=== PATIENT | male | born 1975 | race Caucasian/White ===

== ENCOUNTER 2016-12-21 12:07 | Day surgery (SDC) | payer OTHER ==
[2016-12-21] VITALS (9 sets, daily range): BP systolic 132–165; BP diastolic 80–96; PULSE 75–92; RESP 14–20; Ht 177.8 cm; Wt 103.0 kg
[~2016-12-21] VITALS: Ht 177.8 cm; Wt 103.0 kg
[2016-12-21] MEDS ORDERED: OMEP20CA16 PO (13:04)
[2016-12-21] MEDS ORDERED: PROPOFOL 20 ML ONE ×2 (15:06→18:06)
[2016-12-21] MEDS ORDERED: SUCCINYLCHOLINE CHLORIDE 100 MG/5 ML SYG IV ONE (15:06)
[2016-12-21] MEDS ORDERED: MIDAZOLAM 1 MG/ML 2 ML INJ ONE (15:06)
[2016-12-21] MEDS ORDERED: LIDOCAINE 2% (SDV) 5 ML INJ ONE (15:06)
--- NOTE | 2016-12-21 15:08 | HPN ---
Date/Time of Note Date/Time of Note DATE: 12/21/16 TIME: 15:07 Interval H&P Admission Note Pt. seen H&P reviewed: No system changes SU LOPES MD Dec 21, 2016 15:08
[2016-12-21] MEDS ORDERED: DEXAMETHASONE 4 MG/ML 1 ML INJ ONE (16:17)
[2016-12-21] MEDS ORDERED: ONDANSETRON 4 MG INJ ONE (16:17)
[2016-12-21] MEDS ORDERED: METOCLOPRAMIDE 10 MG INJ ONE (16:17)
[2016-12-21] MEDS ORDERED: ROCURONIUM 50 MG INJ ONE (16:20)
[2016-12-21] MEDS ORDERED: FENTAnyl 50 MCG/ML VIAL ONE (16:21)
[2016-12-21] MEDS ORDERED: CLINDAMYCIN 900 MG/D5W (PMX) 50 ML IVPB ONE (16:21)
[2016-12-21] MEDS ORDERED: EPINEPHrine 1 MG INJ ONE (16:27)
[2016-12-21] MEDS ORDERED: EPINEPHrine 1 MG/ML 30 ML INJ ONE (16:28)
[2016-12-21] MEDS ORDERED: GLYCOPYRROLATE 0.4 MG INJ ONE (16:35)
[2016-12-21] MEDS ORDERED: NEOSTIGMINE 3 MG/3 ML SYRINGE ONE ×2 (16:35→16:37)
--- NOTE | 2016-12-21 16:43 | OPR ---
Date/Time of Note Date/Time of Note DATE: 12/21/16 TIME: 16:37 Operative Report Procedure Date: Dec 21, 2016 Preoperative Diagnosis Left vocal cord mass. Postoperative Diagnosis Same Operation Performed Microscopic direct laryngoscopy with resection of left vocal fold mass. Surgeon: SU LOPES MD Anesthesia: general Estimated Blood Loss: minimal Specimens Left/anterior commissure vocal cord mass. Complications: None Pt Condition Post Procedure: stable Disposition: PACU Indications Dysphonia, shortness of breath. 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 Procedure Description Description of procedure: The patient was identified in the holding area. We had a discussion to confirm understanding of indications, risks, benefits, alternatives and postoperative care associated with the operation. The potential for tooth damage , voice change, progressive hoarseness was discussed specifically. Informed consent was signed. The patient was taken the operating room and placed supine on the operating table. General endotracheal anesthesia was achieved with moderate difficulty due to the relatively large glottic mass. Once this was done, the eyes and teeth were protected and laryngoscopy was performed. Blood was noted in the posterior pharynx and a small laceration in the pharynx was found to be the source. The larynx was visualized and suspended. A very large anterior left cord mass was identified. A microcup forceps was used to grab the mass and retract it into the microscopic field. Under microscopy, an angled laryngeal scissor was used to transect the posterior aspect. Decision was made to leave a small amount on the anterior commissure to prevent webbing. Lidocaine and epi were applied separately. The mass, once resected, was sent to pathology. All instruments were removed and teeth examined and found to be normal. The patient tolerated the procedure well and was extubated, taken to PACU in stable condition. Complications: None SU LOPES MD Dec 21, 2016 16:43
[2016-12-21] MEDS ORDERED: FENTAnyl 50 MCG/ML VIAL IV PRN (17:00)
[2016-12-21] MEDS ORDERED: ONDANSETRON 4 MG INJ IV PRN (17:00)
[2016-12-21] MEDS ORDERED: PROCHLORPERAZINE 10 MG INJ IV PRN (17:00)
[2016-12-21] MEDS ORDERED: DIPHENHYDRAMINE 50 MG INJ IV PRN (17:00)
[2016-12-21] MEDS ORDERED: MEPERIDINE 25 MG INJ IV PRN (17:00)
[2016-12-21] MEDS ORDERED: OXYCODONE/ACETAMINOPHEN (5/325) TAB PO PRN (17:00)
[2016-12-21] MEDS ORDERED: HYDROmorphONE (0.2 MG/ML) 10ML SYG IV PRN (17:00)
== END 2016-12-21 18:10 | disposition home or self-care (01) ==
LOC: SDS 12:07
PROVIDERS: ATTEND Otolaryngology
DX: J38.1 Polyp of vocal cord and larynx (principal); R49.0 Dysphonia; E66.9 Obesity, unspecified; Z68.32 Body mass index [BMI] 32.0-32.9, adult
CPT/HCPCS: 31540; 88307; J0171; J1100; J2250; J2405; J2765; J3010; J7999; Z7512; Z7610; J2710

== ENCOUNTER 2017-03-09 08:35 | Day surgery (SDC) | payer OTHER ==
[2017-03-08 10:08] VITALS: BMI 33.2
[~2017-03-09] VITALS: Ht 180.3 cm; Wt 101.6 kg
[2017-03-09] VITALS (14 sets, daily range): BP systolic 118–151; BP diastolic 76–97; PULSE 60–101; RESP 12–22; Ht 180.3 cm; Wt 101.6 kg
[~2017-03-09 08:35] MED LIST: OMEP20CA16 PO
[2017-03-09] MEDS ORDERED: CEFAZOLIN 2 GM/50 ML (PMX) 50 ML IVPB SCH (09:00)
[2017-03-09] MEDS ORDERED: SOD CHLORIDE 0.9% 1,000 ML IV SCH (10:00)
[2017-03-09] MEDS ORDERED: POLYMYXIN/BACITRACIN 1L IRRIG ONE (10:24)
[2017-03-09] MEDS ORDERED: BUPIVACAINE 0.25% (MPF) 10 ML 10 ML VIAL ONE ×2 (10:24→12:12)
[2017-03-09] MEDS ORDERED: MIDAZOLAM 1 MG/ML 2 ML INJ IV PRN (11:00)
[2017-03-09] MEDS ORDERED: EPHEDrine SULFATE 50 MG/5 ML SYG IV PRN (11:00)
[2017-03-09] MEDS ORDERED: METOCLOPRAMIDE 10 MG INJ IV PRN (11:00)
[2017-03-09] MEDS ORDERED: MEPERIDINE 25 MG INJ IV PRN (11:00)
[2017-03-09] MEDS ORDERED: hydrALAzine 20 MG INJ IV PRN (11:00)
[2017-03-09] MEDS ORDERED: FENTAnyl 50 MCG/ML VIAL IV PRN ×2 (11:00)
[2017-03-09] MEDS ORDERED: LABETALOL HCL 20MG INJ IV PRN (11:00)
[2017-03-09] MEDS ORDERED: HYDROmorphONE (0.2 MG/ML) 10ML SYG IV PRN ×3 (11:00)
[2017-03-09] MEDS ORDERED: ONDANSETRON 4 MG INJ IV PRN (11:00)
[2017-03-09] MEDS ORDERED: OXYCODONE/ACETAMINOPHEN (5/325) TAB PO PRN ×2 (11:00)
[2017-03-09] MEDS ORDERED: DIPHENHYDRAMINE 50 MG INJ IV PRN (11:00)
[2017-03-09] MEDS ORDERED: MEPERIDINE 100 MG INJ ONE (11:04)
[2017-03-09] MEDS ORDERED: NEOSTIGMINE 3 MG/3 ML SYRINGE ONE ×2 (11:04→11:48)
[2017-03-09] MEDS ORDERED: GLYCOPYRROLATE 0.4 MG INJ ONE ×3 (11:04→11:48)
[2017-03-09] MEDS ORDERED: LIDOCAINE 2% (SDV) 5 ML INJ ONE (11:04)
[2017-03-09] MEDS ORDERED: ROCURONIUM 50 MG INJ ONE (11:04)
[2017-03-09] MEDS ORDERED: SUCCINYLCHOLINE CHLORIDE 100 MG/5 ML SYG IV ONE (11:04)
[2017-03-09] MEDS ORDERED: PROPOFOL 20 ML ONE (11:04)
[2017-03-09] MEDS ORDERED: CEFAZOLIN 1 GM INJ ONE (11:48)
--- NOTE | 2017-03-09 12:24 | OPR ---
Date/Time of Note Date/Time of Note DATE: 03/09/17 TIME: 12:18 Operative Report Procedure Date: Mar 09, 2017 Preoperative Diagnosis incarcerated ventral hernia Postoperative Diagnosis large incarcerated ventral hernia Operation Performed 1. laparoscopic converted to open incarcerated ventral hernia repair 2. laparoscopic lysis of adhesions 3. implantation of mesh cpt code 05623 4. therapeutic injection of subcutaneous marcaine cpt code 54719 Surgeon: Deb ROGERS Anesthesia Type: general Estimated Blood Loss: 10 - 50 ml's Specimen: none Grafts/Implants ventralight ST 10x 15 cm mesh Complications: no Indications This is a 42-year-old male with a very large incarcerated ventral hernia. He required surgical repair. Risks alternatives benefits of personally discussed the patient. In particular potential complications include but not limited to bleeding infection and conversion to open were discussed the patient. Patient expresses understanding and consents to the operation. Procedure Description Patient was taken to the OR and prepped draped in usual sterile fashion. Surgical timeout was performed. IV antibiotics given. Left upper quadrant 5 mm incision was made transversely with a 15 blade. Using a 5 mm optical trocar optical and she was performed. Pneumoperitoneum is established. Left flank 12 mm optical trocar left lower quadrant 5 mm optical trochars were placed under direct visualization upon initial inspection there are some adhesions to the anterior abdominal wall from prior surgery these were taken down extensively laparoscopic lysis of adhesions however on evaluation of the hernia which appeared incarcerated with extensive adhesions the decision was made to convert to open. Transverse incision infraumbilical was made with a 15 blade. Dissection cautery was carried onto the fascia. The hernia was identified and isolated. The hernia sac was then reduced. Fascial edges were freshened. A 10 x [address] mesh was secured in place with interrupted #1 Prolenes with approximate 4-5 there is a coverage in all directions. There is good hemostasis. The she was closed primarily with a running #1 looped PDS. The surgical site was irrigated. The surgical site was hemostatic. The base of the stalk of the rectus was then secured to the anterior abdominal wall with an interrupted 3-0 Vicryl suture. The skin was then closed with skin wilfred. There appears to contains Marcaine was injected throughout the incision site. Dressings were applied. Deb ROGERS Mar 09, 2017 12:24
[2017-03-09] MEDS ORDERED: HYDROCODONE/APAP (5/325) TAB PO ONE (12:30)
[2017-03-09] MEDS: FENTAnyl 50 MCG/ML VIAL IV PRN ×2 (12:38→12:47)
== END 2017-03-09 15:35 | disposition home or self-care (01) ==
LOC: SDS 08:35
PROVIDERS: ATTEND Surgery
DX: K43.6 Other and unspecified ventral hernia with obstruction, without gangrene (principal); E66.9 Obesity, unspecified; Z68.31 Body mass index [BMI] 31.0-31.9, adult
CPT/HCPCS: 49653; C1781; J0690; J2175; J2710; J3010; Z7512; Z7610; J7999

== ENCOUNTER 2018-02-24 10:07 | Day surgery (SDC) | END 2018-02-24 16:00 | disposition home or self-care (01) ==